=== PATIENT | male | born 1990 | race Caucasian/White ===

== ENCOUNTER 2019-05-15 11:51 | Outpatient (CLI) | payer BC, SELFPAY ==
--- NOTE | 2019-05-15 12:03 | XRR_ITS ---
PROCEDURE INFORMATION: Exam: XR Chest, 2 Views Exam date and time: 05/15/2019 12:13 PM Age: 28 years old Clinical indication: Condition or disease; Lung condition and disease; Pneumonia; Other: Not specified; Other: Diarrhea; Patient HX: Coughing up blood; Additional info: Diarrhea/pneumonia TECHNIQUE: Imaging protocol: XR of the chest Views: 2 views. COMPARISON: CR Chest 1 [place] [id number] 11/12/2017 9:34 PM FINDINGS: Lungs: No lung consolidation or pulmonary edema. Pleural space: No pleural effusion or pneumothorax. Heart/Mediastinum: The cardiac silhouette is not enlarged. The mediastinal contours are normal. Bones/joints: No acute osseous abnormality. XR/XR chest 2V* [id number] IMPRESSION: No acute abnormality.
== END 2019-05-15 11:52 | disposition home or self-care (01) ==
LOC: RAD 11:58
PROVIDERS: Family Provider Family Medicine; PCP Family Medicine; Visit Provider Nurse Practitioner Family
DX: J18.9 Pneumonia, unspecified organism (principal); R19.7 Diarrhea, unspecified
CPT/HCPCS: 71046

== ENCOUNTER 2020-06-11 17:55 | Emergency (ER) | payer BC, SELFPAY ==
[2020-06-11 18:03] VITALS: BP 162/103; PULSE 105; RESP 22; TEMP 36.8; O2SAT 94; BMI 38.3
[2020-06-11 18:10] VITALS: BP 161/106; PULSE 89; RESP 18; O2SAT 97
[2020-06-11 18:20] LABS: Glucose Point of Care 478 mg/dL (70-110)
--- NOTE | 2020-06-11 18:21 | W.ED.RECABL ---
HPI - Recheck/Abnormal Lab/Rx General: Chief Complaint: General Medical Stated Complaint: HIGH BG, POSS NEW ONSET DM Time Seen by Provider: 06/11/20 18:17 Source: patient Mode of arrival: ambulatory Limitations: no limitations History of Present Illness: HPI narrative: 30-year-old male states of last 2 weeks he has had increased urination and increased thirst. He states that he is also been feeling tired all the time. He states he checked his blood sugar today and it was high. His mother is a type I diabetic. He denies any history of diabetes with himself. He has had no diarrhea. He had one episode of vomiting earlier today. He denies any fevers. Review of Systems Const: Denies: fever(s), chills, body aches or change in appetite Eyes: Denies: blurry vision or eye discomfort ENMT: Denies: throat pain or dental pain Card: Denies: chest pain Resp: Denies: dyspnea GI: Denies: abdominal pain, nausea, vomiting or diarrhea : Denies: dysuria Musc: Denies: neck pain or back pain Skin/Breast: Denies: rash Neuro: Denies: headache(s) Psych: Denies: depression Endo: Reports: polyuria, polydipsia and tired all the time Cheo/Lymph: Denies: easy bruising All/Imm: Denies: urticaria PFSH ED PFSH: Social History Smoking and tobacco status: current every day smoker Alcohol intake: current Alcohol intake frequency: holidays/special occasions only Physical Exam Const: COMMON NORMALS: no acute distress, patient oriented x3 and healthy appearing HENMT: COMMON NORMALS: normocephalic and atraumatic HEAD & SCALP: normocephalic and atraumatic Eye: COMMON NORMALS: Equal, round and reactive pupils present and EOMs intact bilaterally PUPIL: Yes Equal, round and reactive pupils present Neck/C-Spine: COMMON NORMALS: full ROM and supple Chest: COMMONS NORMALS: normal inspection of the chest and normal palpation of entire chest wall Resp: COMMON NORMALS: normal respiratory effort, No retractions, No use of accessory muscles and clear to auscultation bilaterally AUSCULTATION: clear to auscultation bilaterally Cardio: COMMON NORMALS: regular rate, regular rhythm and No murmurs present (Cardio) RATE: regular rate RHYTHM: regular rhythm GI: COMMON NORMALS: Normal to inspection, nondistended, normoactive bowel sounds present, Soft to palpation, non-tender and no masses PALPATION: Yes Soft to palpation Extremity: COMMON NORMALS: normal to inspection and full ROM Neuro: COMMON NORMALS: patient oriented x3, moves all extremities and no focal motor deficits Psych: COMMON NORMALS: mental status grossly normal, Normal thought process present and cooperative THOUGHT PROCESS: Normal thought process present Skin: COMMON NORMALS: no rashes or lesions noted and no wounds GENERAL SKIN EXAM: no rashes or lesions noted Course Vital Signs: Vital signs: Vital Signs Temperature 98.3 F 06/11/20 18:03 Pulse Rate 72 06/11/20 20:00 Respiratory Rate 17 06/11/20 20:00 Blood Pressure 171/69 06/11/20 19:10 Pulse Oximetry 95 06/11/20 20:00 MDM - Recheck/Abnormal Lab/Rx MDM Narrative: Medical decision making narrative: Patient presents with hyperglycemia is likely type II diabetic. Patient's blood sugar is improving here and he is not in DKA. He feels improved after IV fluids. We will start him on Metformin he has an appointment with his PCP tomorrow. He is to return if worsening. He understands and agrees to plan. Lab Data: Labs: Lab Results 06/11/20 06/11/20 06/11/20 Range/Units 18:15 18:32 18:32 WBC (4.0-10.0) 10^3/ uL RBC (4.1-5.3) 10^6/u L Hgb (11.7-16.6) g/dL Hct (42.0-52.0) % MCV (80-94) fL MCH (28.0-34.0) pg MCHC (30.0-36.0) g/dL RDW (12.1-15.1) % Plt Count (130-400) 10^3/c mm MPV (7.4-10.4) fL Neut % (Auto) % Lymph % (Auto) % Bureau % (Auto) % Eos % (Auto) % Baso % (Auto) % Neut # (Auto) (1.8-7.7) 10^3/u L Lymph # (Auto) (0.8-4.8) 10^3/u L Bureau # (Auto) (0.2-0.9) 10^3/u L Eos # (Auto) (0.0-0.8) 10^3/u L Baso # (Auto) (0.0-0.1) 10^3/u L Nucleated RBC % (a uto) % Nucleated RBCs # /100WBC Sodium 127 L (136-145) mmol/L Potassium 3.9 (3.5-5.1) mmol/L Chloride 88 L (98-107) mmol/L Carbon Dioxide 21 L (22-29) mmol/L Anion Gap 21.9 H (5-19) BUN 10 (6-20) mg/dL Creatinine 0.9 (0.7-1.2) mg/dL GFR Calculation 99.1 (90-130) mL/min Glucose 460 H (65-115) mg/dL POC Glucose 478 H (70-110) mg/dL Calculated Osmolal ity 283 L (285-295) mOsm/k g Calcium 9.4 (8.5-10.5) mg/dL Total Bilirubin 0.6 (0.15-1.2) mg/dL AST 51 H (0-40) U/L ALT 138 H (0-41) U/L Alkaline Phosphata se 148 H (40-130) IU/L Total Protein 7.2 (6.6-8.7) g/dL Albumin 4.6 (3.5-5.2) g/dL Globulin 2.6 (1.3-4.6) g/dL Serum Ketones Negative (Negative) 06/11/20 06/11/20 Range/Units 19:46 20:05 WBC 11.6 H (4.0-10.0) 10^3/ uL RBC 5.06 (4.1-5.3) 10^6/u L Hgb 15.9 (11.7-16.6) g/dL Hct 43.7 (42.0-52.0) % MCV 86.4 (80-94) fL MCH 31.4 (28.0-34.0) pg MCHC 36.4 H (30.0-36.0) g/dL RDW 11.9 L (12.1-15.1) % Plt Count 235 (130-400) 10^3/c mm MPV 13.0 H (7.4-10.4) fL Neut % (Auto) 51.9 % Lymph % (Auto) 40.2 % Bureau % (Auto) 6.2 % Eos % (Auto) 0.8 % Baso % (Auto) 0.6 % Neut # (Auto) 6.03 (1.8-7.7) 10^3/u L Lymph # (Auto) 4.7 (0.8-4.8) 10^3/u L Bureau # (Auto) 0.7 (0.2-0.9) 10^3/u L Eos # (Auto) 0.1 (0.0-0.8) 10^3/u L Baso # (Auto) 0.1 (0.0-0.1) 10^3/u L Nucleated RBC % (a uto) 0 % Nucleated RBCs # 0.0 /100WBC Sodium (136-145) mmol/L Potassium (3.5-5.1) mmol/L Chloride (98-107) mmol/L Carbon Dioxide (22-29) mmol/L Anion Gap (5-19) BUN (6-20) mg/dL Creatinine (0.7-1.2) mg/dL GFR Calculation (90-130) mL/min Glucose (65-115) mg/dL POC Glucose 404 H (70-110) mg/dL Calculated Osmolal ity (285-295) mOsm/k g Calcium (8.5-10.5) mg/dL Total Bilirubin (0.15-1.2) mg/dL AST (0-40) U/L ALT (0-41) U/L Alkaline Phosphata se (40-130) IU/L Total Protein (6.6-8.7) g/dL Albumin (3.5-5.2) g/dL Globulin (1.3-4.6) g/dL Serum Ketones (Negative) Discharge Plan Discharge Patient Disposition: Home Clinical Impression: Hyperglycemia Condition: Stable Prescriptions: New metformin 500 mg tablet 500 mg PO BID Qty: 60 RF: 0 No Action omeprazole 40 mg capsule,delayed release(DR/EC) 40 mg PO DAILY PRN (Reason: Heartburn) RF: 0 Discharge Orders: Discharge ED (Routine); Ordered 06/11/20 Ordered By: Bull Potts Referrals: Scott Joseph MD [Primary Care Provider] - 1-3 days Discharge Diet: Advance as tolerated Discharge Activity: Resume usual activity Patient Instructions: Hyperglycemia Coding Level of Care Code ED Airway Controller for Chg Fwd Exam Comprehensive
[2020-06-11] MEDS: sodium chloride 0.9% 1,000 ML 999 ML IV ×3 (18:50→20:28)
[2020-06-11 19:10] VITALS: BP 171/69; PULSE 73; RESP 17; O2SAT 97
[2020-06-11 19:13] LABS: Ketone (Acetest) Serum Negative (Negative)
[2020-06-11 19:30] LABS: Albumin Level 4.6 g/dL (3.5-5.2); Alkaline Phosphatase 148 IU/L (40-130); Blood Urea Nitrogen 10 mg/dL (6-20); Calcium 9.4 mg/dL (8.5-10.5); Carbon Dioxide 21 mmol/L (22-29); Chloride 88 mmol/L (98-107); Globulin 2.6 g/dL (1.3-4.6); Glomerular Filtration Rate 99.1 mL/min (90-130); Glucose 460 mg/dL (65-115); Osmolality Calculated 283 mOsm/kg (285-295); Sodium 127 mmol/L (136-145); Total Bilirubin 0.6 mg/dL (0.15-1.2); Total Protein 7.2 g/dL (6.6-8.7)
[2020-06-11 19:45] LABS: Anion Gap 21.9 (5-19); Potassium 3.9 mmol/L (3.5-5.1)
[2020-06-11 19:51] LABS: Glucose Point of Care 404 mg/dL (70-110)
[2020-06-11 19:53] LABS: Alanine Aminotransferase 138 U/L (0-41); Aspartate Amino Transferase 51 U/L (0-40)
[2020-06-11 20:00] VITALS: PULSE 72; RESP 17; O2SAT 95
[2020-06-11 20:08] LABS: Basophils # 0.1 10^3/uL (0.0-0.1); Basophils % 0.6 %; Eosinophils # 0.1 10^3/uL (0.0-0.8); Eosinophils % 0.8 %; Hematocrit 43.7 % (42.0-52.0); Hemoglobin 15.9 g/dL (11.7-16.6); Lymphocytes # 4.7 10^3/uL (0.8-4.8); Lymphocytes % 40.2 %; Mean Corpuscular HGB Conc 36.4 g/dL (30.0-36.0); Mean Corpuscular Hemoglobin 31.4 pg (28.0-34.0); Mean Corpuscular Volume 86.4 fL (80-94); Monocytes # 0.7 10^3/uL (0.2-0.9); Monocytes % 6.2 %; Neutrophils # 6.03 10^3/uL (1.8-7.7); Neutrophils % 51.9 %; Nucleated Red Blood Cells % 0 %; Platelet Count 235 10^3/cmm (130-400); Red Blood Count 5.06 10^6/uL (4.1-5.3); Red Cell Distribution Width 11.9 % (12.1-15.1); White Blood Count 11.6 10^3/uL (4.0-10.0)
[2020-06-11] MEDS: insulin regular-human 100 units/1 mL 5 UNIT IVP (20:26)
[2020-06-11 20:50] LABS: Glucose Point of Care 346 mg/dL (70-110)
[2020-06-11 21:03] VITALS: BP 152/79; PULSE 100; RESP 18; O2SAT 96
[2020-06-12 17:56] LABS: ABG PCO2 36.2 mmHg (35-45); ABG PH Result 7.45 (7.35-7.45); Arterial Blood Gas Hematocrit 53.7 % (42-52); Base Excess ABG 1.3 mmol/L (-2.0-2.0); Blood Gas Allen Test Pos; Blood Gas Sample Site Radial, right; Blood Gas Sample Type Arterial; Oxygen Device ROOM AIR
[2020-06-13 08:17] LABS: C-Peptide 1.85 ng/mL (0.80-3.85)
== END 2020-06-11 21:03 | disposition home or self-care (01) ==
PROVIDERS: Nurse Practitioner Family; Emergency Provider Emergency Medicine; PCP Family Medicine
DX: R73.9 Hyperglycemia, unspecified (principal); F17.210 Nicotine dependence, cigarettes, uncomplicated
CPT/HCPCS: 36416; 36600; 80053; 82009; 82803; 82962; 84681; 85025; 96361; 96374; 99283; J1815; J7030

== ENCOUNTER 2024-09-10 16:32 | Emergency (ER) | payer MEDICAID, SELFPAY ==
--- NOTE | 2024-09-10 16:33 | XRR_ITS ---
PROCEDURE INFORMATION: Exam: XR Chest Exam date and time: 09/10/2024 4:35 PM Age: 34 years old Clinical indication: Chest pressure; Chest pain; HTN TECHNIQUE: Imaging protocol: Radiologic exam of the chest. Views: 1 view. COMPARISON: CR XR chest 2V* [id number] 05/15/2019 12:08 PM FINDINGS: Lungs: Unremarkable. No consolidation. Pleural spaces: Unremarkable. No pleural effusion. No pneumothorax. Heart/Mediastinum: Unremarkable. No cardiomegaly. Bones/joints: Unremarkable. XR/XR chest 1V portable [id number] IMPRESSION: No acute findings.
--- NOTE | 2024-09-10 16:36 | ECG_ITS ---
[facility] Test Date: 2024-09-10 Pat Name: Jenny Lacy Department: Room: Gender: Male Phlebotomy Services Technician: : 1990 Requested By: Bull Potts Order Number: [id number] Reading MD: COLETTE PAULA Measurements Intervals [place] Rate: 86 P: 28 UT: 128 QRS: 82 QRSD: 89 T: 39 QT: 344 QTc: 413 Interpretive Statements SINUS RHYTHM Compared to ECG 11/17/2017 19:19:20 No significant changes Electronically Signed On 09-11-2024 19:04:09 CDT by COLETTE PAULA [email or web address]
[2024-09-10 16:37] VITALS: BP 169/105; PULSE 87; RESP 17; TEMP 36.7; O2SAT 98; BMI 32.5
[2024-09-10 17:00] VITALS: BP 191/99; RESP 18; O2SAT 95
--- NOTE | 2024-09-10 17:07 | ED_ITS ---
HPI - Chest Pain 2 General: Chief Complaint: Chest Pain Stated Complaint: high bp, tingling in chest & left arm Time Seen by Provider: 09/10/24 16:50 Source: patient Mode of arrival: ambulatory Limitations: no limitations History of Present Illness: Patient is a 34-year-old male that presents to the emergency department with elevated blood pressure and pressure in the left side of his chest and his left arm. He states he does have a history of anxiety. He is also a smoker. He denies any history of heart disease in the past but has had elevated blood pressure in the past. He states he does not take any medications for this. He denies any significant headache. He denies any abdominal pain, nausea or vomiting. He denies any significant cough. He denies any leg pain or swelling. He states a few months ago he took himself off of his anxiety medication. He states he tapered it down before ending it. He presents to the emergency department for further evaluation and treatment. Associated symptoms: Deny abdominal pain, dyspnea, fever(s), nausea or vomiting Related Data Previous Rx's ?Medication ?Instructions ?Recorded alprazolam 0.25 mg tablet 0.25 mg PO TID PRN anxiety # 60 tabs 02/29/24 amlodipine 5 mg tablet 5 mg PO DAILY #30 tabs 09/10 Allergies Allergy/AdvReac Type Severity Reaction Status Date / Time No Known Allergies Allergy Unverified 12/01/21 07:50 Review of Systems 2 General: Reports: 10 or more systems reviewed and unremarkable except in HPI and below Const: Denies: fever(s) or chills Eyes: Denies: change in vision ENMT: Denies: throat pain or ear or mastoid pain Card: Reports: chest pain (Left-sided pressure, radiates down left arm. Been going on for months ) Resp: Denies: dyspnea, productive cough, non-productive cough or wheezing GI: Denies: abdominal pain, nausea or vomiting : Denies: flank pain, difficulty urinating or dysuria Musc: Denies: neck pain, back pain, extremity pain or extremity swelling Skin/Breast: Denies: rash, pruritus or erythema Neuro: Denies: headache(s), numbness in extremities or weakness in extremities Psych: Reports: anxiety Endo: Denies: polyuria or polydipsia Cheo/Lymph: Denies: easy bruising, easy bleeding or petechiae All/Imm: Denies: urticaria or tongue swelling PFSH ED 2 PFSH: Medical History Major depression Anxiety disorder Social History Smoking and tobacco/nicotine status: current every day tobacco/nicotine user (1/2 pack a day) Alcohol intake: current Alcohol intake frequency: holidays/special occasions only Substance/Drug Use: never Physical Exam 2 Const: COMMON NORMALS: no acute distress and alert GENERAL APPEARANCE: c ooperative ORIENTATION/CONSCIOUSNESS: Yes awake HENMT: COMMON NORMALS: normocephalic, atraumatic, external ears normal, EAC's normal and TM's normal bilaterally HEAD & SCALP: normocephalic and atraumatic FACE & SINUS: normal facial exam EXTERNAL EAR: Yes external ears normal EXTERNAL AUDITORY CANAL: EAC's normal TYMPANIC MEMBRANE: TM's normal bilaterally MOUTH: Normal oral and palatal mucosa present and tongue normal Eye: COMMON NORMALS: conjunctivae normal CONJUNCTIVA: Yes conjunctivae normal Neck/C-Spine: COMMON NORMALS: full ROM, no lymphadenopathy, supple and no meningeal signs Lymph: LYMPHATIC: no lymphadenopathy noted Resp: COMMON NORMALS: normal respiratory effort and clear to auscultation bilaterally EFFORT & INSPECTION: Yes able to speak in complete sentences A USCULTATION: clear to auscultation bilaterally, no crackles, no rales, no rhonchi and no wheezes Cardio: COMMON NORMALS: regular rate and regular rhythm RATE: regular rate RHYTHM: regular rhythm GI: COMMON NORMALS: Normal to inspection, nondistended, normoactive bowel sounds present, Soft to palpation and non-tender PALPATION: Yes Soft to palpation Back/Pelvis: COMMON NORMALS: thoracic and lumbar spine normal to inspection and no thoracic nor lumbar tenderness Extremity: COMMON NORMALS: normal to inspection, full ROM, no calf tenderness and no pedal edema Neuro: SENSORIUM/ORIENTATION: Yes alert MENINGEAL SIGNS: Yes no meningeal signs Psych: COMMON NORMALS: cooperative and speech normal ATTITUDE: Yes calm SPEECH: Yes normal speech MOOD & AFFECT: Yes anxious (Patient appears mildly anxious) Skin: COMMON NORMALS: no rashes or lesions noted and no petechiae GENERAL SKIN EXAM: no rashes or lesions noted Course 2 ED course: I discussed the case with Dr. Potts. He agreed with the assessment and plan and states I can provide the patient with some amlodipine to help with his pressures. Vital Signs: Vital signs: Vital Signs Temperature 98.1 F 09/10/24 16:37 Pulse Rate 62 09/10/24 17:37 Respiratory Rate 16 09/10/24 17:37 Blood Pressure 131/82 09/10/24 17:37 Pulse Oximetry 99 09/10/24 17:37 Oxygen Delivery Me thod Room Air 09/10/24 17:00 MDM - Chest Pain Medical Decision Making Patient states that he is feeling better. He was advised of the exam, lab and imaging findings. Thankfully, his troponin was negative. His symptoms have been going on for some time but I would expect that it would be elevated if this was related to his heart. He was noted to have some significantly elevated blood pressure while he was here. He was given amlodipine 5 mg and that brought it down to 131/82. Will write him a prescription for some of this that he can use. I recommended that he follow-up with his primary care provider over the next week for recheck. I also advised that he quit smoking. The patient did not have any pneumonia on the chest x-ray and his lab work was fairly unremarkable. Differential diagnosis includes coronary artery disease, hypertension, atypical chest pain, anxiety. Pulmonary embolism is also on the differential however is less likely as the patient has normal oxygen saturation of 99% on room air and he is not tachycardic. The patient expressed understanding of all discharge instructions. Medical Records I reviewed the patient's medical records. Lab Data I reviewed the patient's lab results. 09/10/24 16:58 09/10/24 16:58 Radiology Impressions Chest X-Ray 09/10/24 16:33 IMPRESSION: No acute findings. Laboratory Results WBC 10.05 10^3/uL (3.29-11.43) 09/10/24 16:58 RBC 5.37 10^6/uL (3.85-5.65) 09/10/24 16:58 Hgb 16.10 g/dL (11.27-16.99) 09/10/24 16:58 Hct 45.9 % (37-53) 09/10/24 16:58 MCV 85.5 fl (82-101) 09/10/24 16:58 MCH 30.0 pg (27-33) 09/10/24 16:58 MCHC 35.1 g/dL (30-55) 09/10/24 16:58 RDW 12.1 % (12.1-15.1) 09/10/24 16:58 Plt Count 218 10^3/cmm (157-399) 09/10/24 16:58 MPV 11.9 fL (7.4-10.4) H 09/10/24 16:58 Neut % (Auto) 52.1 % 09/10/24 16:58 Lymph % (Auto) 38.6 % 09/10/24 16:58 [place] % (Auto) 7.1 % 09/10/24 16:58 Eos % (Auto) 1.6 % 09/10/24 16:58 Baso % (Auto) 0.5 % 09/10/24 16:58 Neut # (Auto) 5.24 10^3/uL (1.8-7.7) 09/10/24 16:58 Lymph # (Auto) 3.9 10^3/uL (0.8-4.8) 09/10/24 16:58 [place] # (Auto) 0.7 10^3/uL (0.2-0.9) 09/10/24 16:58 Eos # (Auto) 0.2 10^3/uL (0.0-0.8) 09/10/24 16:58 Baso # (Auto) 0.1 10^3/uL (0.0-0.1) 09/10/24 16:58 Nucleated RBC % (auto) 0 % 09/10/24 16:58 Nucleated RBCs # 0.0 /100WBC 09/10/24 16:58 PT 12.20 SECONDS (12.1-14.9) 09/10/24 16:58 INR 0.85 (0.8-1.2) 09/10/24 16:58 Sodium 140 mmol/L (136-145) 09/10/24 16:58 Potassium 4.1 mmol/L (3.5-5.1) 09/10/24 16:58 Chloride 104 mmol/L (98-107) 09/10/24 16:58 Carbon Dioxide 22 mmol/L (22-29) 09/10/24 16:58 Anion Gap 18.1 (5-19) 09/10/24 16:58 BUN 13 mg/dL (6-20) 09/10/24 16:58 Creatinine 0.9 mg/dL (0.7-1.2) 09/10/24 16:58 GFR Calculation 96.6 mL/min (90-130) 09/10/24 16:58 Glucose 132 mg/dL (65-115) H 09/10/24 16:58 Calculated Osmolality 292 mOsm/kg (285-295) 09/10/24 16:58 Calcium 9.2 mg/dL (8.5-10.5) 09/10/24 16:58 Total Bilirubin 0.3 mg/dL (0.15-1.2) 09/10/24 16:58 AST 18 U/L (0-40) 09/10/24 16:58 ALT 24 U/L (0-41) 09/10/24 16:58 Alkaline Phosphatase 73 U/L (40-130) 09/10/24 16:58 Troponin T Baseline < 6 ng/L (0-15) 09/10/24 16:58 Total Protein 6.8 g/dL (6.6-8.7) 09/10/24 16:58 Albumin 4.7 g/dL (3.5-5.2) 09/10/24 16:58 Globulin 2.1 g/dL (1.3-4.6) 09/10/24 16:58 Lipase 38 U/L (13-60) 09/10/24 16:58 All radiology interpretation(s) finalized by discharge EKG Data EKG 1: I personally reviewed and interpreted this EKG as follows: Interpretation: Heart rate 86, sinus rhythm, normal axis, no ST elevation, depression or findings of acute ischemia. Critical Care Time 2 Critical Care Time: Critical Care Time: No Discharge Plan Discharge Patient Disposition: Home Clinical Impression: Essential hypertension, Atypical chest pain Anxiety disorder Qualifiers: Anxiety disorder type: generalized anxiety disorder Qualified Code(s): F41.1 - Generalized anxiety disorder Condition: Stable Prescriptions: New amlodipine 5 mg tablet 5 mg PO DAILY Qty: 30 0RF Discontinued venlafaxine 150 mg capsule,extended release 24hr 150 mg PO DAILY Qty: 30 11RF No Action alprazolam 0.25 mg tablet 0.25 mg PO TID PRN (Reason: anxiety) Qty: 60 5RF Discharge Orders: Discharge ED (Routine); Ordered 09/10/24 Ordered By: Compa Bridges Referrals: Scott Joseph MD [Primary Care Provider, [facility]] Discharge Diet: Usual diet Discharge Activity: Resume usual activity Patient Instructions: Opioid Safety, Pain Management, Hypertension (ED), Chest Pain - Noncardiac Activity Restrictions/Additional Instructions: You were noted to have high blood pressure here in the emergency department. That may be contributing to your chest pain. Take the medications as directed for high blood pressure. Rest, increase fluids. Follow-up with your doctor this week for recheck. Return to the emergency department with any worsening symptoms. Print Language: [place] Citizen Coding Level of Care Code ED Tomato Pulper Operator for Mitchell Jackson
[2024-09-10 17:08] LABS: Basophils # 0.1 10^3/uL (0.0-0.1); Basophils % 0.5 %; Eosinophils # 0.2 10^3/uL (0.0-0.8); Eosinophils % 1.6 %; Hematocrit 45.9 % (37-53); Lymphocytes # 3.9 10^3/uL (0.8-4.8); Lymphocytes % 38.6 %; Mean Corpuscular HGB Conc 35.1 g/dL (30-55); Mean Corpuscular Volume 85.5 fl (82-101); Mean Platelet Volume 11.9 fL (7.4-10.4); Monocytes # 0.7 10^3/uL (0.2-0.9); Monocytes % 7.1 %; Neutrophils # 5.24 10^3/uL (1.8-7.7); Neutrophils % 52.1 %; Nucleated Red Blood Cells % 0 %; Platelet Count 218 10^3/cmm (157-399); Red Blood Count 5.37 10^6/uL (3.85-5.65); Red Cell Distribution Width 12.1 % (12.1-15.1); White Blood Count 10.05 10^3/uL (3.29-11.43)
[2024-09-10 17:18] LABS: INR 0.85 (0.8-1.2)
[2024-09-10] MEDS: amlodipine 5 mg Tablet PO (17:25)
[2024-09-10 17:26] LABS: Alanine Aminotransferase 24 U/L (0-41); Albumin Level 4.7 g/dL (3.5-5.2); Alkaline Phosphatase 73 U/L (40-130); Blood Urea Nitrogen 13 mg/dL (6-20); Calcium 9.2 mg/dL (8.5-10.5); Carbon Dioxide 22 mmol/L (22-29); Chloride 104 mmol/L (98-107); Creatinine Clr Calc Pharmacy 147.3937; Globulin 2.1 g/dL (1.3-4.6); Glomerular Filtration Rate 96.6 mL/min (90-130); Glucose 132 mg/dL (65-115); Lipase 38 U/L (13-60); Osmolality Calculated 292 mOsm/kg (285-295); Sodium 140 mmol/L (136-145); Total Bilirubin 0.3 mg/dL (0.15-1.2); Total Protein 6.8 g/dL (6.6-8.7); Troponin(5th) Baseline < 6 ng/L (0-15)
[2024-09-10 17:27] LABS: Anion Gap 18.1 (5-19); Aspartate Amino Transferase 18 U/L (0-40); Potassium 4.1 mmol/L (3.5-5.1)
[2024-09-10 17:37] VITALS: BP 131/82; PULSE 62; RESP 16; O2SAT 99
[2024-09-10 17:56] VITALS: BP 140/74; PULSE 56; O2SAT 98
== END 2024-09-10 17:58 | disposition home or self-care (01) ==
PROVIDERS: Emergency Medicine; Emergency Provider Physician Assistant; PCP Family Medicine
DX: I10 Essential (primary) hypertension (principal); F41.1 Generalized anxiety disorder; R07.89 Other chest pain; F17.210 Nicotine dependence, cigarettes, uncomplicated
CPT/HCPCS: 71045; 80053; 83690; 84484; 85025; 85610; 93005; 99285; J9999

== ENCOUNTER → 2025-04-16 16:06 | Outpatient (BNVA) | payer MEDICAID, SELFPAY | PROVIDERS: PCP Family Medicine; Visit Provider Family Medicine | DX: F41.1 Generalized anxiety disorder (principal); I10 Essential (primary) hypertension | CPT/HCPCS: 80048; 83036 ==